=== PATIENT | female | born 1995 | race American Indian/Alaskan Native ===

== ENCOUNTER 2018-04-26 13:30 | Emergency (ER) | payer SELFPAY ==
[2018-04-26 13:46] VITALS: BP 95/70
[2018-04-26] MEDS ORDERED: BICILLIN L-A IM ONE ×2 (14:21→14:30)
--- NOTE | 2018-04-26 14:30 | Emergency Department Report ---
ED ENT HPI - General Chief complaint: Sore Throat Stated complaint: THROAT PAIN AND PHLEM Time Seen by Provider: 04/26/18 14:09 Source: patient Mode of arrival: Ambulatory Limitations: No Limitations - History of Present Illness Initial comments: Patient is a 22-year-old black female presented with sore throat. Patient states she's had 2 days of pain with swallowing 7 out of 10 in severity. Patient denies cough or nausea vomiting. Patient does state that she was having some hot and cold flashes last night. Patient states there is also a mild headache as well. Severity scale (0 -10): 7 Worsens with: swallowing - Related Data Previous Rx's Medication Instructions Recorded Last Taken Type HYDROcodone/ACETAMINOPHEN 15 ml PO Q6HR PRN #150 solution 04/26/18 Unknown Rx [Hydrocodon-Acetamin 7.5-325/15] ED Dental HPI - General Chief complaint: Sore Throat Stated complaint: THROAT PAIN AND PHLEM Time Seen by Provider: 04/26/18 14:09 Source: patient Mode of arrival: Ambulatory Limitations: No Limitations - Related Data Previous Rx's Medication Instructions Recorded Last Taken Type HYDROcodone/ACETAMINOPHEN 15 ml PO Q6HR PRN #150 solution 04/26/18 Unknown Rx [Hydrocodon-Acetamin 7.5-325/15] ED Review of Systems ROS: Stated complaint: THROAT PAIN AND PHLEM Other details as noted in HPI Comment: All other systems reviewed and negative ED Past Medical Hx - Past Medical History Hx Asthma: Yes Additional medical history: Heart Murmur - Surgical History Past Surgical History?: Yes - Social History Smoking Status: Current Some Day Smoker Substance Use Type: None - Medications Home Medications: Home Medications Medication Instructions Recorded Confirmed Last Taken Type HYDROcodone/ACETAMINOPHEN 15 ml PO Q6HR PRN #150 solution 04/26/18 Unknown Rx [Hydrocodon-Acetamin 7.5-325/15] ED Physical Exam - General Limitations: No Limitations General appearance: alert, in no apparent distress - Head Head exam: Present: atraumatic, normocephalic - Eye Eye exam: Present: normal appearance - ENT ENT exam: Present: mucous membranes moist, other (patient has bilateral tonsillar swelling with erythema. Patient also has some small anterior cervical lymph nodes present.) - Neck Neck exam: Present: normal inspection - Respiratory Respiratory exam: Present: normal lung sounds bilaterally. Absent: respiratory distress - Cardiovascular Cardiovascular Exam: Present: regular rate, normal rhythm. Absent: systolic murmur, diastolic murmur, rubs, gallop - GI/Abdominal GI/Abdominal exam: Present: soft, normal bowel sounds - Extremities Exam Extremities exam: Present: normal inspection - Back Exam Back exam: Present: normal inspection - Neurological Exam Neurological exam: Present: alert, oriented X3 - Psychiatric Psychiatric exam: Present: normal affect, normal mood - Skin Skin exam: Present: warm, dry, intact, normal color. Absent: rash ED Course Vital Signs 04/26/18 13:41 Temperature 98.3 F Pulse Rate 99 H Respiratory 16 Rate Blood Pressure 95/70 O2 Sat by Pulse 100 Oximetry ED Medical Decision Making - Medical Decision Making Patient is meeting [facility] criteria for treatment for strep pharyngitis will be discharged home. Critical care attestation.: If time is entered above; I have spent that time in minutes in the direct care of this critically ill patient, excluding procedure time. ED Disposition Clinical Impression: Strep pharyngitis Disposition: DC-01 TO HOME OR SELFCARE Is pt being admited?: No Does the pt Need Aspirin: No Condition: Stable Instructions: Pharyngitis (ED) Referrals: PRIMARY CARE, [Primary Care Provider] - 3-5 Days
== END 2018-04-26 14:45 | disposition home or self-care (01) ==
LOC: ED 13:30
DX: J02.0 Streptococcal pharyngitis (principal); F17.200 Nicotine dependence, unspecified, uncomplicated; J45.909 Unspecified asthma, uncomplicated
CPT/HCPCS: 96372; 99282; J0561

== ENCOUNTER 2020-08-28 22:54 | Emergency (ER) | payer SELFPAY | END 2020-08-29 | disposition left against medical advice (07) | LOC: ED 22:54 | DX: M79.672 Pain in left foot (principal); Z53.21 Procedure and treatment not carried out due to patient leaving prior to being seen by health care provider ==